=== PATIENT | female | born 1940 | race Hispanic/Latino ===

== ENCOUNTER 2024-12-01 15:31 | Inpatient (IN) | payer MEDICARE ==
[~2024-12-01] VITALS: Ht 152.4 cm; Wt 77.1 kg
[2024-12-01 16:33] VITALS: PULSE 87; RESP 20; TEMP 98.5
[2024-12-01 17:49] LABS: BASOPHILS # (AUTO) 0.1 (0.0-0.1); EOSINOPHILS # (AUTO) 0.1 (0.0-0.4); EOSINOPHILS % 0.7 % (0.0-6.0); HEMATOCRIT 34.3 % (34.2-44.1); LYMPHOCYTES # (AUTO) 1.5 (1.0-3.2); LYMPHOCYTES % 18.1 % (18.0-39.1); MEAN CORPUSCULAR HEMOGLOBIN 30.1 pg (28-32); MEAN CORPUSCULAR HGB CONC 32.1 g/dL (31-35); MEAN CORPUSCULAR VOLUME 93.7 fL (81-99); MONOCYTES # (AUTO) 0.7 (0.2-0.8); MONOCYTES % 8.9 % (4.4-11.3); NEUTROPHILS # (AUTO) 5.7 (2.1-6.9); NEUTROPHILS % 71.2 % (38.7-80.0); PLATELET COUNT 203 x10e3/uL (140-360); RED BLOOD COUNT 3.66 x10e6/uL (3.6-5.1); RED CELL DISTRIBUTION WIDTH 12.9 % (11.7-14.4); WHITE BLOOD COUNT 8.05 x10e3/uL (4.8-10.8)
[2024-12-01 18:09] LABS: ALBUMIN 3.9 g/dL (3.5-5.0); ANION GAP 14.1 mmol/L (8-16); BILIRUBIN,TOTAL 0.7 mg/dL (0.2-1.2); CALCIUM 9.5 mg/dL (8.4-10.2); CREATININE, SERUM 1.03 mg/dL (0.57-1.11); POTASSIUM 4.1 mmol/L (3.5-5.1)
[2024-12-01] MEDS ORDERED: SODIUM CHLORIDE FLUSH 10 ML SYR INJ PRN (20:45)
[2024-12-01] MEDS ORDERED: ONDANSETRON HCL INJ 2MG/ML 2ML 2 MG/ML VIAL IV PRN (20:45)
[2024-12-01] MEDS: FUROSEMIDE INJ 10 MG/ML 4 ML VIAL IV SCH (21:00)
[2024-12-01 21:44] VITALS: BP 171/64; PULSE 83; RESP 18; TEMP 97.7; O2SAT 96
[2024-12-01 23:24] VITALS: BP 152/84; PULSE 78; RESP 18; TEMP 97.7; O2SAT 99
[2024-12-02] VITALS (8 sets, daily range): BP systolic 140–185; BP diastolic 52–84; PULSE 71–88; RESP 18–20; TEMP 97.7–98.2; O2SAT 94–100
[2024-12-02] MEDS ORDERED: QUETIAPINE FUMA25 MG PO (00:07)
[2024-12-02] MEDS ORDERED: AMLOD-VALSA-HC1 EAC4 PO (00:07)
[2024-12-02] MEDS ORDERED: PIOGLITAZONE HC15 MG PO (00:07)
[2024-12-02] MEDS ORDERED: JARDIANCE10 MG PO (00:07)
[2024-12-02 06:23] LABS: BASOPHILS # (AUTO) 0.1 (0.0-0.1); BASOPHILS % 1.1 % (0.0-1.0); EOSINOPHILS # (AUTO) 0.2 (0.0-0.4); HEMATOCRIT 35.1 % (34.2-44.1); HEMOGLOBIN 11.3 g/dL (12.0-16.0); LYMPHOCYTES # (AUTO) 1.9 (1.0-3.2); LYMPHOCYTES % 26.3 % (18.0-39.1); MEAN CORPUSCULAR HEMOGLOBIN 30.5 pg (28-32); MEAN CORPUSCULAR HGB CONC 32.2 g/dL (31-35); MEAN CORPUSCULAR VOLUME 94.6 fL (81-99); MONOCYTES # (AUTO) 0.8 (0.2-0.8); MONOCYTES % 10.5 % (4.4-11.3); NEUTROPHILS # (AUTO) 4.4 (2.1-6.9); NEUTROPHILS % 59.8 % (38.7-80.0); PLATELET COUNT 229 x10e3/uL (140-360); RED BLOOD COUNT 3.71 x10e6/uL (3.6-5.1); WHITE BLOOD COUNT 7.34 x10e3/uL (4.8-10.8)
[2024-12-02 06:46] LABS: ALBUMIN 3.8 g/dL (3.5-5.0); ANION GAP 16.8 mmol/L (8-16); BILIRUBIN,TOTAL 0.8 mg/dL (0.2-1.2); CALCIUM 9.5 mg/dL (8.4-10.2); CREATININE, SERUM 1.06 mg/dL (0.57-1.11); POTASSIUM 3.8 mmol/L (3.5-5.1); TOTAL PROTEIN 7.8 g/dL (6.5-8.1)
[2024-12-02 06:52] LABS: TROPONIN I 0.008 ng/mL (0-0.300)
[2024-12-02] MEDS ORDERED: DEXTROSE 50% SYRINGE 50 ML IV PRN (10:00)
[2024-12-02] MEDS ORDERED: VALSARTAN 160 MG TAB PO SCH ×2 (10:15→10:30)
[2024-12-02] MEDS ORDERED: AMLODIPINE BESYLATE 10 MG TAB PO SCH (10:30)
[2024-12-02] MEDS ORDERED: HYDROCHLOROTHIAZIDE 25 MG TAB PO SCH (10:30)
[2024-12-02] MEDS: POTASSIUM CHLORIDE 10MEQ EA PO SCH (11:05)
[2024-12-02] MEDS: ASPIRIN 325 MG TAB PO ONE (11:05)
[2024-12-02] MEDS: METOPROLOL SUCCINATE 25 MG TAB XL PO SCH (12:08)
[2024-12-02] MEDS: INSULIN LISPRO 100 UNIT/1 ML 3ML VIAL SQ SCH (12:11)
[2024-12-02 15:12] LABS: TROPONIN I 0.014 ng/mL (0-0.300)
[2024-12-02] MEDS: QUETIAPINE FUMARATE 25 MG TAB PO SCH (20:46)
[2024-12-02] MEDS: ENOXAPARIN SOD INJ 60 MG/0.6 ML SYR SC SCH (20:46)
[2024-12-03] VITALS (8 sets, daily range): BP systolic 125–157; BP diastolic 49–79; PULSE 76–84; RESP 16–20; TEMP 97.8–98.6; O2SAT 95–99
[2024-12-03 06:34] LABS: BASOPHILS # (AUTO) 0.1 (0.0-0.1); BASOPHILS % 0.9 % (0.0-1.0); EOSINOPHILS # (AUTO) 0.1 (0.0-0.4); EOSINOPHILS % 2.4 % (0.0-6.0); HEMATOCRIT 33.1 % (34.2-44.1); HEMOGLOBIN 10.7 g/dL (12.0-16.0); LYMPHOCYTES # (AUTO) 1.9 (1.0-3.2); MEAN CORPUSCULAR HEMOGLOBIN 30.1 pg (28-32); MEAN CORPUSCULAR HGB CONC 32.3 g/dL (31-35); MONOCYTES # (AUTO) 0.8 (0.2-0.8); MONOCYTES % 13.5 % (4.4-11.3); PLATELET COUNT 209 x10e3/uL (140-360); RED BLOOD COUNT 3.56 x10e6/uL (3.6-5.1); RED CELL DISTRIBUTION WIDTH 12.9 % (11.7-14.4); WHITE BLOOD COUNT 5.79 x10e3/uL (4.8-10.8)
[2024-12-03 07:12] LABS: ANION GAP 12.8 mmol/L (8-16); CALCIUM 8.8 mg/dL (8.4-10.2); CREATININE, SERUM 1.01 mg/dL (0.57-1.11); POTASSIUM 3.8 mmol/L (3.5-5.1)
[2024-12-03] MEDS: FUROSEMIDE INJ 10 MG/ML 4 ML VIAL IV SCH (08:36)
[2024-12-03] MEDS: ASPIRIN 81 MG ENTERIC COATED PO SCH (08:36)
[2024-12-03] MEDS: VALSARTAN 160 MG TAB PO SCH (08:36)
[2024-12-03] MEDS: EMPAGLIFLOZIN 10 MG TABLET PO SCH (08:37)
[2024-12-03] MEDS ORDERED: FUROSEMIDE 20 MG TAB PO SCH (09:00)
[2024-12-03] MEDS ORDERED: ASPIRIN 325 MG TAB PO SCH (09:00)
[2024-12-03] MEDS ORDERED: REGADENOSON 0.4 MG/5 ML SYR IV ONE (11:36)
[2024-12-04] VITALS: BP 128/74; PULSE 79; RESP 18; TEMP 98.1; O2SAT 95
[2024-12-04 04:00] VITALS: BP 136/63; PULSE 79; RESP 18; TEMP 98; O2SAT 96
[2024-12-04 07:59] VITALS: BP 116/57; PULSE 88; RESP 16; TEMP 98.4; O2SAT 96
[2024-12-04] MEDS: APIXABAN 5 MG TABLET PO SCH (09:04)
[2024-12-04 10:32] VITALS: BP 116/57; PULSE 88; RESP 16; TEMP 98.4; O2SAT 96
[2024-12-04] MEDS ORDERED: ELIQUIS5 MG PO (11:21)
[2024-12-04] MEDS ORDERED: DIOVAN160 MG PO (11:26)
[2024-12-04] MEDS ORDERED: LOPRESSOR25 MG PO (11:26)
[2024-12-04] MEDS ORDERED: LASIX40 MG PO (11:26)
[2024-12-04] MEDS ORDERED: KLOR-CON 1010 MEQ PO (11:27)
[2024-12-04 11:38] VITALS: BP 126/57; PULSE 74; RESP 19; TEMP 98.6; O2SAT 100
== END 2024-12-04 13:15 | disposition home or self-care (01) | DRG 291 ==
LOC: ER 18:42 → ERHOLD 20:36 → MED/SURG3 21:56 → OBSVTOIN 12-03 23:08
PROVIDERS: ADMIT Internal Medicine; ATTEND Internal Medicine
DX: I11.0 Hypertensive heart disease with heart failure (principal); I50.33 Acute on chronic diastolic (congestive) heart failure; I48.0 Paroxysmal atrial fibrillation; Z79.01 Long term (current) use of anticoagulants; I25.10 Atherosclerotic heart disease of native coronary artery without angina pectoris; I27.20 Pulmonary hypertension, unspecified; E11.42 Type 2 diabetes mellitus with diabetic polyneuropathy; Z79.84 Long term (current) use of oral hypoglycemic drugs; I49.1 Atrial premature depolarization; D64.9 Anemia, unspecified; K44.9 Diaphragmatic hernia without obstruction or gangrene; K42.9 Umbilical hernia without obstruction or gangrene; K43.2 Incisional hernia without obstruction or gangrene; Z79.899 Other long term (current) drug therapy
CPT/HCPCS: 36415; 71045; 71250; 78452; 80048; 80053; 82550; 82948; 83880; 84443; 84484; 85025; 93005; 93017; 93306; 99284; A9502; G0378; J1650; J1940